=== PATIENT | female | born 1960 | race Hispanic/Latino ===

== ENCOUNTER 2023-05-10 21:16 | Emergency (ER) | payer BC ==
[2023-05-10 23:39] LABS: SARS-CoV-2, RNA, NAAT NEGATIVE SARS CoV-2 (NEGATIVE)
[2023-05-10 23:45] LABS: INFLUENZA TYPE A Negative For Type A (NEGATIVE); INFLUENZA TYPE B Negative For Type B (NEGATIVE)
[2023-05-11] MEDS ORDERED: BENZONATATE 100 MG CAPSULE PO ONE
[2023-05-11] MEDS ORDERED: ALBUTEROL 0.083% 2.5 MG/3 ML INH IH ONE (01:00)
[2023-05-11] MEDS ORDERED: 0.9%NACL 1000ML 1,000 ML IV ONE (01:00)
[2023-05-11] MEDS ORDERED: KETOROLAC 15MG/ML VIAL (15MG/ML) IV ONE (01:00)
[2023-05-11] MEDS ORDERED: FAMOTIDINE 20MG VIAL IV ONE (01:00)
[2023-05-11] MEDS ORDERED: AZIT250T9 PO (01:15)
[2023-05-11] MEDS ORDERED: ALBU18HF7 IH (01:15)
[2023-05-11] MEDS ORDERED: GUAI200T5 PO (01:15)
[2023-05-11] MEDS ORDERED: AZITHROMYCIN 250 MG TABLET PO ONE (01:30)
[2023-05-11 01:34] VITALS: PULSE 72; RESP 14
[2023-05-11 01:55] LABS: BASOPHILS # (AUTO) 0.05 K/uL (0.00-0.20); BASOPHILS % (AUTO) 0.4 % (0.0-5.0); EOSINOPHILS # (AUTO) 0.07 K/uL (0.00-0.70); EOSINOPHILS % (AUTO) 0.6 % (0.0-8.0); IMMATURE GRANULOCYTE ABSOLUTE 0.04 K/uL (0-1); LYMPHOCYTES # (AUTO) 2.5 K/uL (1.0-4.8); LYMPHOCYTES % (AUTO) 21.3 % (21.0-51.0); MEAN CORPUSCULAR HEMOGLOBIN 31.3 pg (27.0-33.0); MEAN CORPUSCULAR HGB CONC 34.6 g/dL (32.0-36.0); MEAN CORPUSCULAR VOLUME 90.5 fL (79-99); MONOCYTES # (AUTO) 0.8 K/uL (0.1-1.0); MONOCYTES % (AUTO) 6.7 % (3.0-13.0); NEUTROPHILS # (AUTO) 8.3 K/uL (1.8-7.7); NEUTROPHILS % (AUTO) 70.7 % (40.0-77.0); PLATELET COUNT (AUTO) 252 K/uL (130-400); RED BLOOD CELL COUNT(AUTO) 4.31 MIL/uL (4.00-5.50); RED CELL DISTRIBUTION WIDTH 12.1 % (11.0-15.5); WHITE BLOOD COUNT (AUTO) 11.8 K/uL (4.8-10.8)
[2023-05-11 02:03] LABS: CREATININE 0.8 mg/dL (0.5-1.5); POTASSIUM 3.8 mmol/L (3.5-5.1)
[2023-05-11 03:09] VITALS: BP 156/76; PULSE 82; RESP 18; O2SAT 97
== END 2023-05-11 03:11 | disposition home or self-care (01) ==
LOC: EDH 21:16
DX: J40 Bronchitis, not specified as acute or chronic (principal); R05.9 Cough, unspecified; Z20.822 Contact with and (suspected) exposure to COVID-19
CPT/HCPCS: 99284; 71045; 87635; 80048; 85025; 87804 ×2; 36415; 96374; 96361; 96375; 94640; C9803; J3490; J7030; J1885